=== PATIENT | male | born 1955 | race Caucasian/White ===

== ENCOUNTER 2020-01-23 05:45 | Day surgery (SDC) | payer OTHER ==
[~2020-01-23] VITALS: Ht 182.9 cm; Wt 100.0 kg
[~2020-01-23 05:45] MED LIST: DUCODYL5 MG PO; FLOMAX0.4 MG PO; IBUPROFEN400 MG PO; LISINOPRIL20 MG PO; MIRALAX17 GM PO; MULTI-VITAMIN1 EACH PO; OMEGA-31000 MG PO; PERCOCET 5-3251 EACH PO; VITAMIN C1000 MG PO
[2020-01-23] MEDS ORDERED: ACETAMINOPHEN325 M1 PO (06:05)
[2020-01-23] MEDS ORDERED: TYLOPHEN500 MG PO (06:06)
[2020-01-23] MEDS ORDERED: ACETAMINOPHEN500 MG PO (08:32)
[2020-01-23] MEDS ORDERED: IBUPROFEN600 MG PO (08:32)
--- NOTE | 2020-01-23 08:44 | NUR ---
01/23/20 0844 Milad Monk PT RESPONDS TO TAP AND VOICE ON ENTRY TO PACU. DENIES NAUSEA OR PAIN. REORIENTED TO TIME AND SITUATION. MD AT BEDSIDE AT 0835 REVIEWING PROCEDURE WITH PT. O2 WEANED TO ROOM AIR AT 0842.
--- NOTE | 2020-01-23 09:17 | NUR ---
PT ARRIVES TO DS RM 5 FROM PACU DROWSY, BUT EASY TO AROUSE. PT DENIES ANY PAIN OR NAUSEA. CONT PULSE OXIMETER IN PLACE, PT ON 2L O2 VIA NC SATS GREATER THAN 94%. PT SPOUSE AT BEDSIDE, CALL LIGHT WITHIN REACH. PROVIDED ICED WATER AT BEDSIDE.
--- NOTE | 2020-01-23 10:08 | NUR ---
PT RESTING IN BED WITH EYES CLOSED, EVEN RESP ON ENTRANCE TO . PT EASILY AROUSES WITH VERBAL STIMULATION. DENIES PAIN OR NAUSEA. PT REPOSITIONED IN BED TO HIGH FOWLERS, TAKES SIP OF WATER. PT ENC TO USE CALL LIGHT WITH URGE TO VOID. SPOUSE AT BEDSIDE.
--- NOTE | 2020-01-23 11:18 | NUR ---
PT CONT TO REST IN BED WITH LIGHTS DIMMED. PT STATES, "I STILL FEEL PRETTY GROGGY." PT DENIES ANY VISION CHANGES OR LIGHT HEADEDNESS. PT ENC TO WAIT TO AMBULATE TO BATHROOM UNTIL MORE AWAKE, PT AGREEABLE. PT TOLERATES PO WELL, ORDERS CHICKEN NOODLE SOUP. CALL LIGHT WITHIN REACH, SPOUSE AT BEDSIDE.
--- NOTE | 2020-01-23 11:32 | NUR ---
PT UP TO BATHROOM WITH RN ASSIST, STEADY GAIT. PT VOIDS 300 MLS CONCENTRATED URINE WITH NO PROBLEMS. PT BACK TO BED WOULD LIKE TO REST "30 MORE MINUTES" AND SOUP IS ORDERED FOR PT. PT SPOUSE REMAINS AT BEDSIDE.
--- NOTE | 2020-01-23 13:02 | NUR ---
ELVIE 1215: PATIENT REPORTS "I'M FEELING MUCH BETTER! I THINK I AM READY TO GO." PATIENT EATS 100% OF HIS SOUP.
--- NOTE | 2020-01-23 13:17 | NUR ---
PT ALERT, ORIENTED AND SUPPORTED BY HIS . ALL QUESTIONS ASKED, ANSWERED. PT DID REQUEST A WARM BLANKET AND PRAYER. WILL FOLLOW NEEDED
--- NOTE | 2020-01-23 14:51 | NUR ---
[id number]: DC INSTRUCTIONS PRESENTED TO PT AND SPOUSE. PT PULLS PERSONAL VEHICLE TO FRONT ENTRANCE OF HOSPITAL. PT DC FROM DS RM 5 VIA WC TO HOME.
--- NOTE | 2020-01-24 12:15 | OR ---
[facility] [address] [place], [place] [address] Signed DATE OF OPERATION: 01/23/2020 SURGEON: Josias Banks MD PREOPERATIVE DIAGNOSIS: Verruciform large papillary lesion, left lateral forehead. POSTOPERATIVE DIAGNOSIS: Verruciform large papillary lesion, left lateral forehead (4 cm). PROCEDURE: Excision of 4 cm left alevism/scalp skin lesion with primary closure. ANESTHESIA: General LMA; Josias Santa CRNA and local 6 mL of 0.25% Marcaine with epinephrine. INDICATION: This 64-year-old white man, who is a patient of CHARLOTTE Mcgraw and was noted to have substance of his hair in the left temporal area. A skin lesion, which has been growing and becoming somewhat pigmented. It is not deeply pigmented, however. The lesion is relatively large and excision under local in the office setting is unlikely to be beneficial. On the basis of that and possible need for rotational flap or other means of closure, I have recommended excision in the operating room under more significant antibiotics and local. The risks of bleeding, infection, cosmetic deformity, and other unforeseen complications were reviewed with him. He understands and wished to proceed. FINDINGS: Excision size in total was 4 cm. A clinically negative margin was maintained. Closure was able to be undertaken primarily without requirement for a rotational flap. DESCRIPTION OF PROCEDURE: The patient was brought to the operating room, given a general LMA-type anesthetic. Ancef was given preoperatively. Sequential compression device stockings were used. Heparin subcutaneously administered. The lesion was within the hair substance anterior and superior to the left ear and was papillary and verruciform in appearance. The area was clipped and prepared with a DuraPrep solution and draped sterilely. Elliptical excision was undertaken encompassing the lesion with a clinically negative margin. Access was oriented in a superior direction. Complete excision was accomplished and photographs were taken. Undermining the skin laterally and anteriorly, allowed for Electronically Signed By: JOSIAS BANKS MD 01/24/20 1215 PATIENT NAME: JOSE GUTIÉRREZ OPERATIVE REPORT DATE OF : 59 REPORT #: [id number] PHYSICIAN: JOSIAS BANKS MD PCP: JAIR TRAVIS PAC REPORT IS CONFIDENTIAL AND NOT TO BE RELEASED WITHOUT AUTHORIZATION [address] [address] Signed closure of the deepest layer with interrupted 2-0 Vicryl. The skin was then closed with a running 5-0 nylon suture. Bacitracin was applied as was a Band-Aid. He tolerated procedure well and blood loss was reasonably minimal. He was extubated without problem and taken to recovery room in good condition. MD LEAH Shaffer/TREVORL /[id number] cc: CHARLOTTE Mcgraw Copies: ~ Electronically Signed By: JOSIAS BANKS MD 01/24/20 1215 PATIENT NAME: JOSE GUTIÉRREZ OPERATIVE REPORT DATE OF : 59 REPORT #: [id number] PHYSICIAN: JOSIAS BANKS MD PCP: JAIR TRAVIS PAC REPORT IS CONFIDENTIAL AND NOT TO BE RELEASED WITHOUT AUTHORIZATION
--- NOTE | 2020-01-27 17:53 | PATH ---
[facility] [address] [place], [place] [address] Signed SPECIMEN(S): A LEFT FOREHEAD SPECIMEN SOURCE: A. LEFT FOREHEAD CLINICAL HISTORY: Excision of scalp lesion. FINAL PATHOLOGIC DIAGNOSIS: Skin, left forehead/scalp, excision: - Intradermal nevus with congenital features. NAL:cml:C2NR MICROSCOPIC EXAMINATION: Histologic sections of all submitted blocks are examined by light microscopy. These findings, together with the gross examination, support the pathologic diagnosis. GROSS DESCRIPTION: The specimen, labeled "JH," and designated on the requisition "left forehead lesion, scalp lesion," is received in formalin and consists of an unoriented, segura, 3.0 x 1.7 x 0.8 cm skin ellipse. The resection margin is inked blue. On the skin surface is a fungating, lobulated, segura-pink to yellow, 2.1 x 1.5 x 0.6 cm lesion that is 0.2 cm from the nearest peripheral skin margin. The specimen is cross-sectioned and the lesion does not grossly appear to invade into the subcutaneous tissue. Floor Covering Printer Assistant sections are submitted in one cassette (A1). AI (under the direct supervision of a pathologist) The Gross Description was prepared using a voice recognition system. The report was reviewed for accuracy; however, sound-alike word errors, addition and/or deletions may occur. If there is any question about this report, please contact Client Services. PERFORMING LABORATORY: The technical component was performed by [employer], [address] [place] [id number] (Casting Molder: Kacey Garcia MD; CLIA# [id number]). [facility] [address] [address] (CLIA# [id number]). PATIENT NAME: JOSE GUTIÉRREZ PATHOLOGY DATE OF : 59 REPORT #: [id number] PHYSICIAN: [facility] PATHOLOGY PCP: JAIR TRAVIS PAC REPORT IS CONFIDENTIAL AND NOT TO BE RELEASED WITHOUT AUTHORIZATION [address] [place] [address] Signed Diagnostician: Mickie Tobias MD Pathologist Electronically Signed 01/27/2020 Copies: ~ PATIENT NAME: JOSE GUTIÉRREZ PATHOLOGY DATE OF : 59 REPORT #: [id number] PHYSICIAN: [facility] PATHOLOGY PCP: JAIR TRAVIS PAC REPORT IS CONFIDENTIAL AND NOT TO BE RELEASED WITHOUT AUTHORIZATION
== END 2020-01-23 13:00 | disposition home or self-care (01) ==
LOC: DS 05:45
PROVIDERS: ATTEND Surgery
PROC: 0HB0XZZ Excision of Scalp Skin, External Approach (ICD-10-PCS; 2020-01-23)
PROC: 0HQ0XZZ Repair Scalp Skin, External Approach (ICD-10-PCS; principal; 2020-01-23 06:45)
DX: D22.4 Melanocytic nevi of scalp and neck (principal); I10 Essential (primary) hypertension; Z79.899 Other long term (current) drug therapy
CPT/HCPCS: 00300; J0690; J1100; J1885; J2250; J2405; J2704; J2765; J3010; J7121